=== PATIENT | female | born 1940 | race Caucasian/White ===

== ENCOUNTER 2020-07-16 14:51 | Emergency (ER) | payer OTHER, MEDICARE, SELFPAY ==
[2020-07-16 14:52] VITALS: BP 180/126; PULSE 129; RESP 16; TEMP 36.6; O2SAT 97; BMI 25.3
--- NOTE | 2020-07-16 15:12 | ED.VIS.GEN ---
History of Present Illness Chief Complaint: Fall Informant: Patient Narrative: 1-year-old female presenting with left thigh pain. She states she slipped and fell on steps. She denies hitting her head. She was able to get up and run up the stairs to help her mother get up. Apparently her mother was the cause of her fall. Patient states she has a hematoma on her left hip. But she is ambulatory and has minimal pain. Patient states she was concerned because she is on Xarelto. Past Medical History - Allergies and Home Meds Allergies/Adverse Reactions: Allergies lisinopril [From Zestril] Adverse Reaction (Verified 07/16/20 14:54) Other Primary Care Physician: Fifi Sánchez MD [Primary Care Provider] - Prior records reviewed: Yes Surgical History: noncontributory Lives: Spouse/ Significant Other Smoking Status: Never smoker Review of Systems General: Denies: Chills, Fever, Sweats Eyes: Denies: Visual changes - bilaterally, Diplopia ENT: Denies: Rhinorrhea, Sore throat Cardiovascular: Denies: Chest pain, Palpitations Respiratory: Denies: Dyspnea, Cough, Dyspnea on exertion Gastrointestinal: Denies: Abdominal pain, Nausea, Vomiting, Diarrhea, Melena, Hematochezia Genitourinary: Denies: Dysuria, Hematuria, Frequency Musculoskeletal: Reports: - - Left thigh hematoma Skin: Denies: Rash, Abscess Neurological: Denies: Headache, Weakness, Parasthesia Psych: Denies: Depression, Anxiety Physical Exam Vital Signs/Narrative: Vital Signs Temp Pulse Resp BP Pulse Ox 07/16/20 14:52 97.8 F 129 H 16 180/126 H 97 Inital Vital Signs reviewed: Yes General: Well nourished, No Acute Distress Head: Normocephalic Eyes: Perrl, EOMI ENT: Moist mucous membranes, No rhinorrhea Cardiovascular: Regular rate, Regular rhythm Respiratory: No distress, CTA bilaterally Extremities: - - Tenderness overlying left thigh hematoma. No deformity. Negative logroll. Patient is able to stand and walk briskly. Skin: Normal color, - - 10 cm hematoma on left lateral thigh Neurological: Alert, Oriented x3 Psychological: Normal affect, Normal Mood Diagnostic/Tx/Re-eval - Medical Decision Making 80-year-old female presenting with left leg hematoma. She was concerned because she is on Xarelto. She did not hit her head. She is alert and oriented x3. She has no neuro deficits. Patient states he just wanted to get her thigh looked at. I do not believe she needs an x-ray if she can briskly walk on this. She was counseled on how to care for hematoma. She was counseled to return if it starts to expand. Patient knowledge understanding. She discharged home in stable condition. Impression: 1. Mechanical fall 2. Left thigh hematoma ED Disposition - Plan for ED Patient: Disposition: Home or Assisted Living Instructions: ED Mechanical Fall, ED Hematoma Referrals: Fifi Sánchez MD [Primary Care Provider] -
[2020-07-16 15:50] VITALS: RESP 15
== END 2020-07-16 15:55 | disposition home or self-care (01) ==
PROVIDERS: Emergency Provider Student in an Organized Health Care Education/Training Program; PCP Internal Medicine
DX: S70.12XA Contusion of left thigh, initial encounter (principal); S70.02XA Contusion of left hip, initial encounter; W10.9XXA Fall (on) (from) unspecified stairs and steps, initial encounter; Y93.9 Activity, unspecified; Y92.9 Unspecified place or not applicable; Y99.9 Unspecified external cause status; Z79.01 Long term (current) use of anticoagulants; Z79.899 Other long term (current) drug therapy
CPT/HCPCS: 99282

== ENCOUNTER 2021-09-15 12:48 | Outpatient (CLI) | payer MEDICARE, OTHER, SELFPAY ==
--- NOTE | 2021-09-15 13:02 | CT_ITS ---
STUDY: CT SCAN LOWER EXTREMITY RIGHT REASON FOR EXAM: Female, 81 years old. VARUS DEFORMITY. Johnathan protocol. RADIATION DOSAGE (If Supplied By Facility): CTDIvol = ( 18.09 ) mGy, DLP = ( 1366.96 ) mGycm. Individualized dose optimization techniques were used for this CT.? TECHNIQUE: Multiple axial tomographic images of the right hip, right knee and right ankle joints were obtained without intravenous contrast administration. Coronal and sagittal reconstruction was obtained as well. COMPARISON: None. FINDINGS: Small acetabular spur along the superior lateral aspect of the acetabulum. No significant hip joint narrowing is seen. Imaging of the knee joint was obtained. There is a moderate degree of joint space narrowing involving the medial compartment of the knee joint. Subchondral cysts are seen. Mild degree of joint space narrowing of the patellofemoral joint. Minimal synovial thickening. Imaging of the ankle joint was obtained. No significant abnormality is seen. There is symmetry of the ankle mortise. CT/Extremity Lower without Contra IMPRESSION: Moderate degree of joint space narrowing involving the medial compartment of the knee joint and a mild degree of joint space narrowing involving the patellofemoral compartment. Tiny joint effusion. Electronically Signed: Sanjeev Gandhi MD at 15:23 EDT ,
== END 2021-09-15 23:59 | disposition home or self-care (01) ==
LOC: CT 12:51
PROVIDERS: PCP Internal Medicine; Referring Provider Specialist; Visit Provider Specialist
DX: M21.161 Varus deformity, not elsewhere classified, right knee (principal)
CPT/HCPCS: 73700

== ENCOUNTER 2021-09-22 19:23 | Emergency (ER) | payer MEDICARE, OTHER, SELFPAY ==
[2021-09-22 19:25] VITALS: BP 166/96; PULSE 52; RESP 14; TEMP 36.7; O2SAT 97; BMI 26.0
--- NOTE | 2021-09-22 21:22 | ED.VIS.GI ---
HPI HPI - GI History of Present Illness Chief Complaint: Constipation Informant: patient Abdominal Pain/Flank Pain Onset: Yesterday Context: Gradual Onset Timing: Continuous Quality: Aching Location: - (Lower abdomen) Current Severity: Moderate Maximum Severity: Moderate Worsened by: Nothing Relieved by: Nothing Nausea/Vomiting/Emesis GI Symptom: Negative for Nausea and Vomiting Diarrhea/Melena/Hematochezia GI Symptom: Positive for - (Constipated, feels like needs to have a bowel movement but cannot all day); Negative for Diarrhea, Melena and Hematochezia Associated Symptoms Associated Symptoms: Negative for Dysuria, Frequency and Hematuria Narrative Narrative: Patient's been taking tramadol off-and-on for her knee which needs a knee replacement and is scheduled for October. She is presenting with constipation yesterday and all day today and unable to have a bowel movement although she feels the need to. She takes Dulcolax every day but has not tried anything else for this today. She is having some lower abdominal pain, she feels full and like she needs to have a bowel movement. Denies any vomiting. [facility] Medical History (Updated 09/22/21 @ 22:[address] Dallin Bell MD) Afib Arthritis of knee High cholesterol HTN (hypertension) Home Medications allopurinol 100 mg PO DAILYCM 07/16/20 [History Last Taken Unknown] carvedilol 12.5 mg PO DAILY 07/16/20 [History Last Taken Unknown] hydrochlorothiazide 12.5 mg PO DAILY 07/16/20 [History Last Taken Unknown] losartan 100 mg PO DAILY 07/16/20 [History Last Taken Unknown] rivaroxaban 20 mg PO DAILY 07/16/20 [History Last Taken Unknown] atorvastatin 20 mg PO DAILY 09/22/21 [History Last Taken Unknown] multivitamin 1 cap PO DAILY 09/22/21 [History Last Taken Unknown] Allergy/AdvReac Type Severity Reaction Status Date / Time lisinopril [From Zestril] AdvReac Other Verified 09/22/21 19:25 Social History Smoking Status: Never smoker ROS ROS ED Constitutional Constitutional ED: Denies chills or fever(s) Eyes Eyes: Denies change in vision or diplopia ENT ENT ED: Denies rhinorrhea or sore throat Cardiovascular Cardiovascular: Denies chest pain or palpitations Respiratory/Chest Respiratory/Chest: Denies cough or dyspnea Gastrointestinal Gastrointestinal: Reports as per HPI, abdominal pain and constipation; Denies diarrhea, nausea or vomiting Genitourinary Genitourinary ED: Denies dysuria or hematuria Musculoskeletal Musculoskeletal: Denies back pain or neck pain Integumentary Denies abscess or rash Neurologic Neurologic: Denies headache(s), paresthesias or weakness Psychiatric Psychiatric: Denies anxiety or suicidal thoughts EXAM Physical Exam Const Vital Signs: 09/22/21 19:25 Temperature 98.1 F Temperature Source Temporal Pulse Rate 52 L Respiratory Rate 14 Blood Pressure 166/96 H Blood Pressure Mean 119 Pulse Ox 97 Oxygen Delivery Method Room Air Positive well nourished and well developed General Appearance ED: well developed and NAD HEENT Reports moist mucous membranes normocephalic and atraumatic Eyes PERRL and EOMs intact bilaterally Neck full ROM and supple Resp normal respiratory effort and clear to auscultation bilaterally Cardio regular rate, regular rhythm and no murmurs Rate: Negative for tachycardic GI non-distended GI Narrative: Mildly tender suprapubic area only Auscultation: normoactive bowel sounds Palpation: soft Rectal Exam: visual inspection normal and other Other Details: No palpable hard stool in rectal vault ; Negative for tenderness Back/Spine no CVA tenderness General Back: other FROM Extremity normal to inspection General Extremety ED: Negative for edema, pulses abnormal or tenderness General Extremity: Negative for edema or pulses abnormal Neuro oriented x3, CN's II-XII intact bilaterally and no sensory deficits noted Sensorium / Orientation: awake and alert Motor Exam: strength 5/5 throughout Skin no rashes or lesions noted and no wounds MDM MDM MDM Narrative Medical decision making narrative: Patient was given a fleets enema, and she had a large bowel movement and felt better. She states she still feels sore in her lower abdomen but is not as tender. She states for the last day or 2 she has been straining a lot to try to have a bowel movement without success and she feels like it could be pelvic muscle soreness. I offered placing an IV, doing a CT scan to ensure she does not have anything else causing her pain such as diverticulitis. She has had colonoscopy and sigmoidoscopy's in the past and states she was never told about any diverticulosis. She declines and states she would prefer to go home and see how things go for the next day or so, and states if she gets worse she will return which I think is fine. I advised MiraLAX daily especially if she still continues to take the tramadol, which I suspect was probably causing her constipation. Discharge Plan Triage Chief Complaint: Constipation ED Provider: Dallin Bell Dx/Rx/DC Orders Clinical Impression: Constipation, Abdominal pain, lower Instructions: ED Constipation (Adult) Prescriptions: No Action carvedilol 12.5 MG tablet 12.5 mg PO DAILY RF: 0 allopurinol 100 MG tablet 100 mg PO DAILYCM RF: 0 losartan 100 MG tablet 100 mg PO DAILY RF: 0 hydrochlorothiazide 12.5 MG tablet 12.5 mg PO DAILY RF: 0 rivaroxaban 20 MG tablet 20 mg PO DAILY RF: 0 atorvastatin 20 mg Tablet 20 mg PO DAILY RF: 0 multivitamin Capsule 1 cap PO DAILY RF: 0 Primary Care Provider: Fifi Sánchez Referrals: Fifi Sánchez MD [Primary Care Provider] - 3-5 Days if not improving (Or ER) Activity Restrictions/Additional Instructions: Consider using MiraLAX, 1 capful dissolved in at least 8 ounces of fluid daily, followed by plenty of fluids to keep stools soft, especially if continuing to use tramadol for pain. Disposition Disposition: Home, Self Care
[2021-09-22] MEDS: Fleet Enema 1 ML RC (21:58)
[2021-09-22 22:13] VITALS: BP 156/72; PULSE 62; RESP 15; O2SAT 99
== END 2021-09-22 22:14 | disposition home or self-care (01) ==
PROVIDERS: Emergency Provider Emergency Medicine; PCP Internal Medicine; Visit Provider Emergency Medicine
DX: K59.00 Constipation, unspecified (principal); R10.30 Lower abdominal pain, unspecified; I10 Essential (primary) hypertension; E78.00 Pure hypercholesterolemia, unspecified; Z79.01 Long term (current) use of anticoagulants; Z79.899 Other long term (current) drug therapy
CPT/HCPCS: 99282; A4216

== ENCOUNTER → 2021-12-15 | Outpatient (CLI) | payer MEDICARE, OTHER, SELFPAY ==
--- NOTE | 2021-12-15 10:44 | ECHOD_ITS ---
Reason For Study: Afib/Flutter Procedure This was a 2D Doppler, Color Flow transthoracic echocardiogram. The study was technically difficult. Exam performed in department. Left Ventricle Normal LV size. Left ventricular systolic function is normal. The estimated ejection fraction is 55 %. Diastolic function is indeterminate. No regional wall motion abnormalities noted. Right Ventricle Normal RV size. Normal systolic function. Atria The left atrium is moderately enlarged. The right atrium is mildly enlarged. Mitral Valve There is mild to moderate mitral annular calcification. Mild (1+) eccentric mitral valve insufficiency. Tricuspid Valve Normal tricuspid valve. Mild tricuspid valve insufficiency. Pulmonary artery systolic pressure is 33 mmHg. Aortic Valve Trisinus/trileaflet aortic valve. Mild (1+) aortic valve insufficiency. Pulmonic Valve Normal pulmonic valve. MMode/2D Measurements & Calculations LVIDd: 3.5 cm IVSd: 1.2 cm CO(Teich): 3.0 l/min LVIDs: 2.5 cm LVPWd: 1.1 cm RVDd: 2.4 cm FS: 28.0 % Ao root diam: 3.2 cm LAV(MOD-bp): 106.1 ml LA dimension: 4.5 cm LA A4 area: 31.5 cm2 LAV(MOD-bp) Indexed: 66.4 ml/m2 LAV(MOD-sp2): 89.6 ml LAV(MOD-sp4): 113.2 ml RA A4 area: 25.1 cm2 Doppler Measurements & Calculations MV E max beverly: 128.9 cm/sec Ao V2 max: 107.6 cm/sec AI max beverly: 458.1 cm/sec Ao max P.6 mmHg AI max P.0 mmHg AI dec slope: 288.4 cm/sec2 AI P1/2t: 465.2 msec LV V1 max: 88.6 cm/sec MR max beverly: 555.0 cm/sec PA V2 max: 92.2 cm/sec LV V1 max P.2 mmHg MR max P.2 mmHg LV V1 mean P.7 mmHg MR mean beverly: 449.9 cm/sec LV V1 mean: 59.8 cm/sec MR mean P.1 mmHg LV V1 VTI: 18.0 cm MR VTI: 176.5 cm PI end-d beverly: 163.0 cm/sec TR max beverly: 274.8 cm/sec TR max P.3 mmHg ECHO/Echo Complete Interpretation Summary Normal LV size. Left ventricular systolic function is normal. The estimated ejection fraction is 55 %. No regional wall motion abnormalities noted. Mild (1+) eccentric mitral valve insufficiency. Mild tricuspid valve insufficiency. Diastolic function is indeterminate. Ordering Physician: Alannah, [place] Referring Physician: Fifi Sánchez M.D. Performed By: Ranjan Aquino RCS
== END | disposition home or self-care (01) ==
LOC: CVS 10:44
PROVIDERS: PCP Internal Medicine; Visit Provider Internal Medicine Cardiovascular Disease
DX: I48.91 Unspecified atrial fibrillation (principal); R94.31 Abnormal electrocardiogram [ECG] [EKG]
CPT/HCPCS: 93306

== ENCOUNTER 2022-03-31 12:27 | Observation (INO) | payer MEDICARE, OTHER, SELFPAY ==
--- NOTE | 2022-03-15 22:33 | HP.PCM_ITS ---
History and Physical History and Physical [facility] Patient Name: Luisa Leo : 1940 From:? [facility] PA-C? DATE OF SURGERY:? 03/31/2022 SCHEDULED PROCEDURE:? right total knee arthroplasty HISTORY OF PRESENT ILLNESS: Preoperative history and physical exam was performed on March 15, 2022.? Patient has had ongoing pain in the right knee for many years.? Her pain is dull and aching.? She has increased pain with sitting, walking, and going up and down stairs.? She has pain that wakens her at night.? She has start up pain and stiffness with the knee.? Patient has tried conservative measures including rest, ice, elevation with minimal relief.? She has had previous corticosteroid injections with minimal relief.? She had recent gel one injection in July 2021 which only gave minimal relief.? She has pain with all daily activities.? She denies previous surgery on the right knee.? Patient has tried home exercises with minimal relief.? After failing conservative measures and discussing all treatment options with Dr. Abiel Delgadillo, the patient does wish to proceed with a right total knee arthroplasty.? She has attempted occasional ibuprofen with minimal relief.? She has medical history pertinent for atrial fibrillation in which she currently takes Rivaroxaban 20 mg daily.? She also has hypertension.? We have undergone preoperative clearance with the director of counterintelligence Dr. Jaffe in which we are able to stop his roll to 3 days before surgery.? We are also obtaining surgical clearance of the primary care physician Dr. Sánchez.? Patien t currently denies any chest pain, shortness of breath, fevers chills or recent infections. REVIEW OF SYSTEMS: Review Of Systems: Constitutional: Denies change in appetite, fever,or weight change. Cardiovasular: Denies chest pain, heart murmur and irregular heartbeat. Respiratory: Denies cough, pneumonia, shortness of breath, tuberculosis and wheezing. Gastrointestinal: Denies constipation, diarrhea, heartburn, nausea, rectal itching, bloody stools and vomiting. Genitourinary: Denies incontinence. Musculoskeletal: Reports pain and trouble walking, but denies leg swelling and weakness. Skin: Denies Raynaud's, history of shingles and tattoo. Neurological: Denies ambulatory dysfunction, dizziness, numbness/tingling and tremor. Psychiatric: Reports insomnia, but denies anxiety and stress. Hematologic/Lymphatic: Denies anemia, bleeding/bruising tendency and past transfusion. Reviewed and updated. PAST MEDICAL HISTORY: Advance Care Plan: Other Directive, LIVING WILL Effective Date: 04/11/2017 Other Directive, P.O.A. Effective Date: 04/11/2017 Past Medical History: Medical Problems: High Blood Pressure, A-Fib Covid-19 - VACCINE 06/2020?? Accidents: LT Leg Injury - (07/17/2020) FALL Surgical Hx: Bilat Thumb Anesthesia Complications: None Assistive Devices: Glasses, Cane Reviewed and updated. SOCIAL HISTORY: Social History: Marital: .Occupation: Homemaker.Work Status: Housewife.Hand Dominance: Right-handed. Personal Habits:? Cigarette Use: Never Smoked Cigarettes.Smokeless Tobacco: Never Used Smokeless Tobacco.E-Cigarette Use: Never used.Alcohol: Occasionally.Drug Use: Denies Use.Enjoy Exercising: Never Exercises. Reviewed and updated. VITALS: Ht: 60.5 Wt: 137lb Wt k.143 BMI: 26.3 BP: 136/90 Pulse: 96 Resp: 14 T: 96.7 T: 35.9C Pain Level: 9 O2SatR: 98 ALLERGIES: Zestril Oxycontin Daypro Naproxen Monistat? MEDICATIONS: Losartan Potassium 100 mg 1 by mouth every day, Hydrochlorothiazide 12.5 mg 1 by mouth every day, Allopurinol 100 mg 1 by mouth twice a day, Xarelto 20 mg 1 by mouth every day, Carvedilol 12.5 mg take 1 tablet by mouth twice daily., Atorvastatin Calcium 20 mg 1 by mouth every day, Multivitamin Gummies Adult? PRE-OP EXAM:? General appearance:NORMAL? ? ? Other: Eyes: Conjunctivae and lids: NORMAL? Pupils: ERR Ears, Nose, Mouth, and Throat: NORMAL? Other: Inspection of lips, teeth and gums: NORMAL? ?Other: Neck: Examination of neck: no masses noted. Respiratory: Assessment of respiratory effort: NORMAL? ?Other: ?Auscultation of lungs: clear to auscultation no wheezes, rhonchi or rales. Cardiovascular:? Auscultation of heart: irregular-irregular rate and rhythm, no murmurs, gallops or rubs. PHYSICAL EXAMINATION: Patient does walk with an antalgic gait.? Right knee is without erythema or signs of infection.? She does have mild effusion.? There is tenderness to palpation over the medial joint line.? Patient does have varus alignment which is correctable on exam.? Range of motion: 0 extension to 125 flexion.? Sensation is intact to light touch to bilateral lower extremities.? Stable to anterior/posterior drawer exam. IMAGING STUDIES: Previous x-rays of the right knee reveal varus alignment with medial joint space narrowing, subchondral sclerosis, osteophyte formation consistent with moderate to severe stage IV osteoarthritis. IMPRESSION: 1.? Severe right knee osteoarthritis 2.? Hypertension 3.? Chronic atrial fibrillation: Currently on Xarelto 20 mg PLAN: Dr. Abiel Delgadillo did discuss and review with the patient all treatment options including surgical versus nonsurgical options.? Patient does wish to proceed with the above-stated procedure.? Potential risks, benefits, and complications of the procedure were discussed in detail including but not limited to , infection, nerve and blood vessel damage, persistent pain, numbness, tingling, paresthesias, blood clot, pulmonary embolism, and requirement for possible further surgery.? The patient expressed full understanding and has no further questions for the doctor.? Patient does agree to proceed with the above-stated procedure and has signed the surgery consent form. We discussed the current risks associated with COVID 19.? This does include the risk of exposure while in the hospital.? Patient was reassured local hospitals have low infection rates and are taking all necessary precautions to avoid exposure to patients.? In addition, we discussed strategies that can be used to help limit exposure including those that limit the patient's time in the hospital.? Also using strategies to limit the patient's need for continued inpatient services after being discharged from the hospital.? Patient was notified that we will need to comply with any screening or testing the hospital wishes to perform or that surgery may be delayed for any positive results. This dictation was created using voice recognition software. Phonetic and/or grammatical errors may exist. ___? I have re-examined the patient.? There are no clinical changes since date of exam. ___? See progress notes for changes. ___? Dictated on admission Date: ? ? ?Time: Signature:
[2022-03-17 09:37] LABS: Absolute Lymphocyte Count 1.82 X10^3/uL (0.83-4.51); Basophil# 0.05 X10^3/uL; Basophil% 0.9 % (0-1); Eosinophil# 0.18 X10^3/uL; Eosinophils% 3.3 % (0-5); Hematocrit 40.3 % (37-47); Hemoglobin 13.2 g/dL (12.0-15.0); Lymphocyte # 1.82 X10^3/ul (0.83-4.51); Lymphocyte % 33.3 % (19-41); Mean Corp Hgb Conc 32.8 g/dL (32-36); Mean Corpuscular Hgb 32.3 pg (27.0-32.0); Mean Corpuscular Volume 98.5 fL (81-99); Mean Platelet Vol. 9.5 fl (6.2-12.0); Monocyte# 0.37 X10^3/uL; Monocyte% 6.8 % (0-10); NRBC Flagged by Analyzer 0 % (0-5); Neutrophil # 3.03 X10^3/uL (2.7-7.7); Neutrophil % 55.5 % (47-70); Platelet Count 209 K/mm3 (150-450); RBC Distribution Width CV 13.1 % (11.6-14.6); Red Blood Count 4.09 M/mm3 (4.2-5.4); White Blood Count 5.5 K/mm3 (4.4-11.0)
[2022-03-17 09:58] LABS: Albumin, Serum 3.7 g/dL (3.2-5.0); Anion Gap 7 (5-15); BUN 11 mg/dL (7-18); BUN/Creat Ratio 12.8 RATIO (10-20); Calcium,Total 9.5 mg/dL (8.5-10.1); Chloride 107 mmol/L (98-107); Creatinine, Serum 0.86 mg/dL (0.55-1.02); EST Glomerular Filtration Rate 67 mL/min (>60); Est Glom Filt Rate - Afr Amer 81 mL/min (>60); Glucose 124 mg/dL (74-106); Potassium 3.7 mmol/L (3.5-5.1); Sodium Level 143 mmol/L (136-145)
[2022-03-17 10:07] LABS: Hemoglobin A1c 6.1 % (3.8-5.6)
[2022-03-17 13:37] LABS: Magnesium 1.9 mg/dL (1.6-2.6)
[2022-03-31] VITALS (13 sets, daily range): BP systolic 115–153; BP diastolic 59–105; PULSE 70–120; RESP 14–20; TEMP 36.3–36.8; O2SAT 93–98; BMI 26.2
--- NOTE | 2022-03-31 07:07 | OP.PCM_ITS ---
Report of Operation Date of Procedure: 03/31/22 Pre-Operative Diagnosis: Right knee primary osteoarthritis Post-Operative Diagnosis: Right knee primary osteoarthritis Surgery/Procedure Performed:: Right minimally invasive robotic total knee replacement Description of Surgical Findings:: Stable knee with good patella tracking Surgeon: Abiel Delgadillo turning machine operator helper: Kathrine De La Cruz Type of Anesthesia: Spinal Anesthesiologist: Joaquin Dominguez Special Medications: 2 g Ancef, 1 g TXA at incision, 1 g TXA closure, 10 mg Decadron, joint cocktail (5 mg Duramorph, 30 mL of 0.5% Ropivicaine, 1000 units of epinephrine, 30 mg of Toradol) Specimen's removed: Bony cuts Estimated Blood Loss (mL): 75 Fluids Replaced: 1300 mL crystalloid Description of Procedure: Implants used: 1. [place] size 3 triathlon cruciate retaining distal femoral press-fit component 2. [place] size 3 press-fit tritanium tibial baseplate 3. [place] X3 9 mm CS polyethylene 4. [place] X3 32 mm asymmetric patella Brief history operative indications: 81-year-old f with history of right knee osteoarthritis with radiographic findings with loss of joint space, osteophyte formation and subchondral sclerosis. Failed conservative measures as mentioned in the H&P. Discussion of total knee arthroplasty as well as risk and benefits were discussed the patient including but not limited to blood loss, DVTs, PEs, neurovascular damage, ge neral risk of anesthesia including loss of life, and stiffness or instability were discussed with patient. Patient demonstrated understanding and was able to sign informed consent. Procedure: On the date of procedure patient's right lower extremity was marked in the preoperative area. The patient was then taken back to the operating room where the patient was placed on the table in the supine position. All bony prominences were identified a well-padded. Anesthesia assumed control of the C-spine and airway and remained controlled throughout the remainder of the procedure. A tourniquet was placed on the right upper thigh and the leg was prepped in a sterile fashion. The surgeon then scrubbed at this time .Upon reentering the room right lower extremity was draped in a standard orthopedic fashion. A timeout was then called and everyone agreed upon the side, the site, the procedure to be performed, patient's identity and antibiotics given. Esmarch bandage was used to exsanguinate the extremity and the tourniquet was placed up to 250 mmHg with the knee in flexion. A midline skin incision was made and sharp dissection was taken down through skin subcutaneous tissue and fat. The standard medial parapatellar incision was made and the patella was subluxed laterally. An Appropriate deep MCL release was done and the fat pad was resected. Our attention was then directed to the patella. The patella was everted and a flat resection was made. The knee was then flexed up in 2 femoral pins were placed inside the incision and 2 tibial pins were placed outside the incision in the medial tibia bicortically. Once this was completed the 2 checkpoints in the femur and tibia were placed. Knee was then flexed up and the bony landmarks were registered. Once this was completed knee was taken through range of motion and manually stressed allowing us to a plan for an appropriate tibial cut. The robotic arm was brought into the field sterilely and checkpoint and saw were registered. Based on the patient's deformity the tibial cut was made in 3 degrees of varus. At this time the tensioner was then placed in the joint and ligament tension was checked at 90 degrees and full extension. Based on the patient's ligamentous tension appropriate adjustments were made to the operative plan and ligament releases were done. Once we were happy with our operative plan with balanced flexion and extension gaps our attention was directed to the femur. The robot was brought into the field sterilely and registered. Posterior condylar cuts, anterior chamfer cuts and anterior cuts were appropriately made for a size 3 femur. When these were completed the saws were switched out in the distal femoral and posterior chamfer cuts were made. Protecting the soft tissue throughout this time. A size 3 tibial base plate was selected. the knee was flexed to 90 degrees and the soft tissues and posterior osteophytes were removed from the joint. 40 cc of the periarticular injection was injected into the posterior medial corner of the joint. The appropriate trials were then placed on the femur and tibia. A trial polyethylene was trialed to ensure proper balancing and stability of the knee. The appropriate tibial internal rotation was then marked with a bovie. Our attention was then directed to the patella. The lug holes were drilled and the patella trial was placed. Patellar tracking was checked and deemed appropriate. Once we were happy lug holes were drilled for the femur and trial components were removed. the tibia was subluxed and pinned into place and the keel was punched and drilled appropriately. Final components were verified and opened, and cement was mixed in a vacuum. Snehta Simplex cement was used. The wound was copiously irrigated with normal saline. When the cement was ready the components were impacted into place starting with the tibia, femur and finally cementing the patella. The trial poly component was placed and the knee was placed in full extension. All excess cement was removed in the process. Once the cement had cured the tracking, alignment and balance were verified and a size 9 mm CS polyethylene component was placed. Once the final components were placed a 3-minute dilute Betadine lavage was performed followed by an Irrisept lavage was performed and the wound was copiously irrigated with normal saline solution and the periarticular injection was given. The wound was closed in a layer glaser fashion using #1 vicryl interrupted sutures for the arthrotomy, 2-0 interrupted Vicryl suture for the subcuticular layer and ashish for final skin closure. A sterile compressive dressing was then placed. The patient was then awakened from anesthesia, transferred to the [facility] and transferred to the PACU for recovery. Post op plan DVT ppx: Patient will resume her regular atrial fibrillation Xarelto dose of 20 mg daily tomorrow for DVT prophylaxis, thigh high compression stockings Follow up: in office in 2 weeks for wound check PT: to start POD #0 at hospital, outpatient PT should be arranged. Due to the complexity of this case robotic arm was used to assist in the surgery to improve accuracy and clinical outcomes. Complications No intraoperative complications Admit VTE Documentation VTE Present on Admission: No VTE Mechan Device Prophylaxis: SCD's and Thigh High [place]A Hose VTE Pharm Prophylaxis ordered?: Yes
[2022-03-31] MEDS: Lactated Ringers 1,000 ML 999 ML IV ×3 (08:09→11:00)
[2022-03-31] MEDS: Magnesium 2 GM for ERAS IV (08:09)
[2022-03-31] MEDS: Gabapentin 600 MG Tablet PO (08:12)
[2022-03-31] MEDS: Acetaminophen 500 MG Tablet 1000 MG PO ×3 (08:12→21:55)
[2022-03-31 08:50] LABS: Bedside Glucose 143 mg/dL (74-106)
[2022-03-31] MEDS: Cefazolin 2 GM in 0.9% Normal Saline 100 ML IV (09:57)
--- NOTE | 2022-03-31 10:00 | KNEE_PTH ---
PATIENT: NAVEED WILSON LOC: MS3 U#:[id number] AGE/SX: 81/F ROOM: CO321 RE03/31/[address]: Dr. Abiel Delgadillo MD : 1940 BED: 1 DIS: 04/01/2022 SPEC #: [id number] RECD: 03/31/22 13:13 STATUS: BUBBA WATTSLes #: [id number] CHRISTINA: 03/31/22 10:[address]: Abiel Delgadillo DEPT: SURGICAL PATHOLOGY RECD BY: Kwame Thakkar ENTERED: 03/31/22 13:22 SP TYPE: TOTAL KNEE OTHR DR: MD Dr. Brady Campos MD Tissues: Knee, NOS Procedures: Decalcification bone/plaque Surgery Specimen Level IV HEADER OPERATION: ERAS, total knee replacement robotic arm assist PRE-OP DIAGNOSIS: Severe right knee osteoarthritis TISSUE SUBMITTED: Bone and soft tissue right knee MICROSCOPIC DIAGNOSIS Bone and tissue of right knee, total knee resection: Severe degenerative joint disease. Mild synovial hyperplasia. AM:lisa 04/06/2022 MICROSCOPIC DESCRIPTION Slides are reviewed. GROSS DESCRIPTION Received is one container designated bone and soft tissue right knee. The specimen consists of multiple fragments of solano-yellow bone measuring in aggregate 14 x 10 x 2 cm. Also in the specimen container are multiple fragments of yellow-white soft tissue measuring in aggregate 5 x 2.5 x 1 cm. A number of bony fragments contain articular surfaces consistent with tibial plateau and femoral condyle and displaying prominent osteophyte formation, eburnation, and bone erosion. [employer] sections are submitted in two cassettes as follows: 1 - soft tissue, 2 - bone after decalcification. / AM:lisa 03/31/2022 :5 [facility]: [id number], [id number]
[2022-03-31] MEDS: dexAMETHasone 10 MG/ML Vial IV (10:18)
--- NOTE | 2022-03-31 12:00 | RAD_ITS ---
STUDY: X-RAY - RIGHT KNEE REASON FOR EXAM: Female, 81 years old. Post op -- AP and Lateral xray of operative knee in PACU TECHNIQUE: 2 view(s) of the knee. COMPARISON: None. FINDINGS: Normal visualized distal femur. Normal visualized proximal tibia and fibula. Normal proximal tibiofibular articulation. The patient is status post total knee replacement. There is good alignment. Postoperative soft tissue changes. RAD/Knee 1 or 2 Views IMPRESSION: Status post total knee replacement. There is good alignment. Postoperative soft tissue changes. Electronically Signed: Sanjeev Gandhi MD at 12:21 EDT ,
[2022-03-31] MEDS: Lactated Ringers 1,000 ML 125 ML IV (12:20)
--- NOTE | 2022-03-31 13:10 | NURSING ---
talked with Megha RUBBER BLOCK LAYER, aware Dr. Cowart does not feel needs to be on tele monitoring at this time with elevated HR and Afib.
--- NOTE | 2022-03-31 14:43 | PCM.PN.HOSP ---
Subjective Subjective 1-year-old female presents for a right total knee replacement secondary to osteoarthritis. She is doing well, denies any significant pain does state that she has a sore throat after anesthesia. No recent medication changes Objective Data Objective Data Vital Signs: Vital Signs Temp Pulse Resp BP Pulse Ox O2 Del Method O2 Flow Rate 97.3 F L 108 H 15 145/84 H 98 Nasal Cannula 4 03/31/22 13:50 03/31/22 13:50 03/31/22 13:50 03/31/22 13:50 03/31/22 13:50 03/31/22 13:50 03/31/22 13:50 Oxygen Flow Rate (L/min) 4 Oxygen Delivery Method Nasal Cannula Weight: 136 lb 10.986 oz Body Mass Index (BMI) 26.2 Intake & Output: Intake and Output for Last 24 Hours 03/30/22 03/31/22 04/01/22 03:59 03:59 03:59 Intake Total 3269 / 3269 Balance 3269 / 3269 Lab / Micro Data Result Diagrams: 03/17/22 08:58 03/17/22 08:58 Labs: Laboratory Results - last 24 hr 03/31/22 07:57: POC Glucose 143 H Micro: Microbiology 03/17/22 09:02 Swab (Method) Nasal Screen MRSA/MSSA - Final Radiography Diagnostic Testing: Radiology Impression Knee X-Ray 03/31/22 12:00 IMPRESSION: Status post total knee replacement. There is good alignment. Postoperative soft tissue changes. Electronically Signed: Sanjeev Gandhi MD at 12:21 EDT , Physical Exam Narrative General: Alert, Oriented x3, Cooperative, No apparent distress HEENT: Atraumatic, PERRLA, EOMI, Normocephalic Oral: Moist Mucosa Neck: Supple, No JVD Lungs: Diminished, Normal air movement, No rhonchi, No wheeze, No rales Cardiovascular: Tachycardic with an irregular rhythm, Normal S1, Normal S2, No murmurs Abdomen: Soft, Non Tender, Non-Distended, No Hepato-splenomegaly Extremities: No edema, Capillary Refill Less than 3 Seconds Skin: Surgical dressing intact Musculoskeletal: No Tenderness to Palpation of Joints or Extremities Neurological: Cranial nerves II-XII grossly intact, Motor Exam 5/5 strength throughout, Sensory exam intact to light touch and pain Psych/Mental Status: Normal Affect, Appropriate Assessment & Plan Assessment/Plan (1) Osteoarthritis of right knee: (2) Status post total right knee replacement: PLAN: Plan 1. Status post right total knee replacement on 03/31/2022 for osteoarthritis of the right knee ? Pain management per primary ? Anticoagulation per primary 2. Persistent A. fib/HTN/HLD ? She did take her Coreg this morning but her heart rate is little bit elevated likely secondary to surgery and pain we will continue to monitor ? Can resume all of her home medications including Coreg, hydrochlorothiazide and losartan we will monitor renal function in the morning ? Okay to resume Xarelto per primary ? Continue with Lipitor DVT: Xarelto Charges/Coding Visit Charges OBSV E&M: 53451 Subsequent observation care L2
[2022-03-31] MEDS: Ensure Surgery 237 ML LIQUID PO (16:46)
[2022-03-31] MEDS: Cefazolin 1 GM/50 ML BAG IV (17:00)
[2022-03-31] MEDS: HYDROcodone Bitartrate/Apap 5/325 Tablet PO (19:10)
[2022-03-31] MEDS: Carvedilol 12.5 MG Tablet PO (21:54)
[2022-03-31] MEDS: Atorvastatin Calcium 20 MG Tablet PO (21:54)
[2022-03-31] MEDS: Senna/Docusate Sodium 1 Tablet 2 TABLET PO (21:55)
[2022-04-01 01:55] VITALS: BP 120/68; PULSE 101; RESP 17; TEMP 36.6; O2SAT 96
[2022-04-01] MEDS: Cefazolin 1 GM/50 ML BAG IV (01:57)
[2022-04-01 05:57] LABS: Hematocrit 29.4 % (37-47); Hemoglobin 10.1 g/dL (12.0-15.0); Mean Corp Hgb Conc 34.4 g/dL (32-36); Mean Corpuscular Hgb 33.7 pg (27.0-32.0); Mean Platelet Vol. 9.4 fl (6.2-12.0); Platelet Count 161 K/mm3 (150-450); RBC Distribution Width CV 13.1 % (11.6-14.6); RBC Distribution Width SD 46.8 fl (35.1-43.9); White Blood Count 9.1 K/mm3 (4.4-11.0)
[2022-04-01] MEDS: Acetaminophen 500 MG Tablet 1000 MG PO ×2 (06:11→14:21)
[2022-04-01 06:49] LABS: Anion Gap 6 (5-15); BUN 17 mg/dL (7-18); BUN/Creat Ratio 21.7 RATIO (10-20); Calcium,Total 8.7 mg/dL (8.5-10.1); Chloride 104 mmol/L (98-107); Creatinine, Serum 0.78 mg/dL (0.55-1.02); EST Glomerular Filtration Rate 75 mL/min (>60); Est Glom Filt Rate - Afr Amer 90 mL/min (>60); Estimated Creatinine Clearance 31.15 ml/min; Glucose 135 mg/dL (74-106); Potassium 3.5 mmol/L (3.5-5.1); Sodium Level 139 mmol/L (136-145)
[2022-04-01 08:00] VITALS: BP 103/45; PULSE 89; RESP 16; TEMP 36.7; TEMP 37.1; O2SAT 93; O2SAT 94
[2022-04-01] MEDS: Allopurinol 100 MG Tablet PO (08:17)
[2022-04-01] MEDS: Famotidine 20 MG Tablet PO (08:17)
[2022-04-01] MEDS: Carvedilol 12.5 MG Tablet PO (08:17)
[2022-04-01] MEDS: Senna/Docusate Sodium 1 Tablet 2 TABLET PO (08:19)
[2022-04-01] MEDS: Ensure Surgery 237 ML LIQUID PO ×2 (08:22→11:24)
[2022-04-01] MEDS: Multivitamins,Therapeutic Tablet 1 TABLET PO (08:23)
--- NOTE | 2022-04-01 09:34 | PCM.PN.ORT ---
Subjective Subjective Patient is s/p right sided total knee arthroplasty with Dr. eDlgadillo. Patient resting comfortably in bed. Rates pain 1/ 10 at rest. With movement 7/10. States taking Tylenol, [place] and ice help to relieve pain. Patient has been up with therapy. Walking with the assit of a walker. Afebrile, no chest pain, shortness of breath, negative calf pain/ erythema, and no other signs of DVT. Dressing changed times once overnight for drainage. Overall patient appears asymptomatic this morning from drop in H&H however is on continuous pulse ox at this time and is ranging from 90-110. Oxygen saturations stable. She is having no chest pain no shortness of breath no lightheaded or dizziness. Objective Data Objective Data Vital Signs: Vital Signs Temp Pulse Resp BP Pulse Ox O2 Del Method O2 Flow Rate 98.1 F 89 16 103/45 L 94 Room Air 2 04/01/22 08:00 04/01/22 08:00 04/01/22 08:00 04/01/22 08:00 04/01/22 08:00 04/01/22 08:00 04/01/22 01:55 Oxygen Flow Rate (L/min) 2 Oxygen Delivery Method Room Air Weight: 62 kg Body Mass Index (BMI) 26.2 Intake & Output: Intake and Output for Last 24 Hours 03/30/22 03/31/22 04/01/22 23:59 23:59 23:59 Intake Total 4384 / 4834 750 / 750 Balance 4384 / 4834 750 / 750 Lab / Micro Data Result Diagrams: 04/01/22 05:30 04/01/22 05:30 Labs: Laboratory Results - last 24 hr 04/01/22 05:30: WBC 9.1, RBC 3.00 L, Hgb 10.1 L, Hct 29.4 L, MCV 98.0, MCH 33.7 H, MCHC 34.4, RDW Std Deviation 46.8 H, RDW Coeff of Sridhar 13.1, Plt Count 161, MPV 9.4 04/01/22 05:30: Sodium 139, Potassium 3.5, Chloride 104, Carbon Dioxide 29.0, Anion Gap 6, BUN 17, Creatinine 0.78, Estim Creat Clear Calc 31.15, Est GFR (MDRD) Af Amer 90, Est GFR (MDRD) Non-Af 75, BUN/Creatinine Ratio 21.7 H, Glucose 135 H, Calcium 8.7 Micro: Microbiology 03/17/22 09:02 Swab (Method) Nasal Screen MRSA/MSSA - Final Radiography Diagnostic Testing: Radiology Impression Knee X-Ray 03/31/22 12:00 IMPRESSION: Status post total knee replacement. There is good alignment. Postoperative soft tissue changes. Electronically Signed: Sanjeev Gandhi MD at 12:21 EDT , Physical Exam Narrative Patient resting comfortably in bed No signs of acute distress Satting well on room air Limb is warm to touch, Sensation intact throughout entire lower extremity, including saphenous, sural, superficial and deep peroneal, and tibial distribution. DP/PT pulses bounding. Dorsi and plantar flexion strength 5/5 Dressing small area of dried blood in the midportion of incision. Otherwise clear dry intact Calf nontender to palpation, no erythema, no edema. Negative Homans Assessment & Plan Assessment/Plan (1) Status post total right knee replacement: PLAN: 1. Will continue PT today. Weightbearing as tolerated 2. plan for discharge this afternoon following PT. will continue to monitor patient's pulse ox. Oxygen saturation is stable. Pulse upon rounding ranging from 90-1 10. As long as patient remains less than 100, nontachycardic, okay for discharge home today. Spoke with nursing staff they will let us know. 3. Patient will follow up for post op appointment as previously scheduled in 2 weeks 4. Patient has outpatient PT appointment as previously scheduled 5. WBC 9.1 no acute reactive leukocytosis 6. H/H .4: post operavtive anemia secondary to acute blood loss intraoperatively. Patient is asymptomatic at this time. On continuous pulse ox that she is trending from 90s to 110. Overall I believe she is still asymptomatic. Encourage fluids today. No intraoperative complications. will continue to monitor. no acute interventions. 7. DVT prophylaxis : Resume Xarelto tonight as previously prescribed. 8. Pain control: patient instructed to take tylenol 500mg 2 tablets TID. and [place] 1-2 tablets every 4-6 hours only as needed for pain control. 9. ok to remove post op dressing. post op day 5 (2) Osteoarthritis of right knee:
--- NOTE | 2022-04-01 10:14 | PN.HOSP_ITS ---
Subjective Subjective Follow-up on postop medical management: Patient was seen and examined. She denied any pain at the time of being seen. No acute events overnight. Blood pressures are much controlled Objective Data Objective Data Vital Signs: Vital Signs Temp Pulse Resp BP Pulse Ox O2 Del Method O2 Flow Rate 98.1 F 89 16 103/45 L 94 Room Air 2 04/01/22 08:00 04/01/22 08:00 04/01/22 08:00 04/01/22 08:00 04/01/22 08:00 04/01/22 08:00 04/01/22 01:55 Oxygen Flow Rate (L/min) 2 Oxygen Delivery Method Room Air Weight: 62 kg Body Mass Index (BMI) 26.2 Intake & Output: Intake and Output for Last 24 Hours 03/30/22 03/31/22 04/01/22 23:59 23:59 23:59 Intake Total 4384 / 4834 750 / 750 Balance 4384 / 4834 750 / 750 Lab / Micro Data Result Diagrams: 04/01/22 05:30 04/01/22 05:30 Labs: Laboratory Results - last 24 hr 04/01/22 05:30: WBC 9.1, RBC 3.00 L, Hgb 10.1 L, Hct 29.4 L, MCV 98.0, MCH 33.7 H, MCHC 34.4, RDW Std Deviation 46.8 H, RDW Coeff of Sridhar 13.1, Plt Count 161, M PV 9.4 04/01/22 05:30: Sodium 139, Potassium 3.5, Chloride 104, Carbon Dioxide 29.0, Anion Gap 6, BUN 17, Creatinine 0.78, Estim Creat Clear Calc 31.15, Est GFR (MDRD) Af Amer 90, Est GFR (MDRD) Non-Af 75, BUN/Creatinine Ratio 21.7 H, Glucose 135 H, Calcium 8.7 Micro: Microbiology 03/17/22 09:02 Swab (Method) Nasal Screen MRSA/MSSA - Final Radiography Diagnostic Testing: Radiology Impression Knee X-Ray 03/31/22 12:00 IMPRESSION: Status post total knee replacement. There is good alignment. Postoperative soft tissue changes. Electronically Signed: Sanjeev Gandhi MD at 12:21 EDT , Physical Exam Narrative Physical exam: General: Alert, Oriented x3, Cooperative, no apparent distress HEENT: Atraumatic Oral: Moist Mucosa Neck: Supple Lungs: Clear to auscultation Cardiovascular: HS I+II, regular, no murmurs Abdomen: Bowel Sounds Present, Soft, Non Tender Extremities: No edema Skin: No rashes, No breakdown Neurological: Grossly intact Psych/Mental Status: Appropriate Assessment & Plan Assessment/Plan (1) Status post total right knee replacement: PLAN: Plan 1. POD #1 status post right minimally invasive robotic total knee replacement Patient's pain is fairly controlled, PT and OT consulted to evaluate and treat Continue according to orthopedics recommendation 2. Hypertension, controlled, continue on home blood pressure medications with holding parameters 3. Chronic atrial fibrillation, continue Coreg and Xarelto 4. Hyperlipidemia, continue statin 5. DVT prophylaxis?on Xarelto Charges/Coding Visit Charges Inpatient E&M: 07165 Subs Hosp L2
[2022-04-01 10:41] VITALS: O2SAT 94
--- NOTE | 2022-04-01 10:48 | DCINST_ITS ---
Discharge Instructions Diet Discharge Diet: No restrictions Activity Discharge Activity: Return to Normal Activity Weight Bearing Status: Weight bearing as tolerated Dressing / Incision Call your doctor if your incision/area has: Continuous Slow Oozing, Sudden Increased Bleeding, Increased Pain/ Swelling, Increased Redness, Foul Smelling Discharge and Swelling at the incision site Call your doctor if you observe: Fever of 101 or Higher, Change in Color, Chest pain and Calf discomfort Remove Dressing in: 5 days Cleanse incision/area with: Soap & Water and Keep Dressing Clean & Dry Follow Up Care Test Results: Test results from this visit will be discussed in further detail at your follow- up appointment, if applicable. Discharge Plan Admission Admit Date/Time: 03/31/22 12:27 Attending Provider: Abiel Delgadillo Primary Care Provider: Fifi Sánchez Consulting Providers: Lucille Alvarado Discharge Orders/Prescriptions Prescriptions: New acetaminophen 500 mg Tablet 1,000 mg PO Q8 Qty: 180 0RF hydrocodone-acetaminophen 5-325 mg Tablet 1 - 2 tab PO .q4-6hrs prn PRN (Reason: Pain Score 4-5) 7 Days Qty: 60 0RF Continued allopurinol 100 MG tablet 100 mg PO DAILYCM losartan 100 MG tablet 100 mg PO DAILY hydrochlorothiazide 12.5 MG tablet 12.5 mg PO DAILY rivaroxaban 20 MG tablet 20 mg PO DAILY Label Comments: Take 1 tablet by mouth daily with dinner. for atrial fibrillation / anitcoagulation carvedilol 12.5 mg tablet 12.5 mg PO BID atorvastatin 20 mg Tablet 20 mg PO DAILY multivitamin Capsule 1 cap PO DAILY Discontinued acetaminophen 500 mg tablet 500 mg PO Q8H PRN (Reason: Pain) Referrals / Follow Up: Fifi Sácnhez MD [Primary Care Provider] - Disposition Disposition (needs filled in before D/C Order can be placed): Home, Self Care
[2022-04-01 11:25] VITALS: BP 110/52; PULSE 85
[2022-04-01 13:01] VITALS: O2SAT 98
--- NOTE | 2022-04-01 13:18 | CASEMGMT ---
GRICEL DIXON Assessment: Face to Face with pt for initial transition planning/care coordination assessment. GRICEL DIXON introduced self and role at [facility], pt voices understanding and consents to assessment. Pt is A/O x4 and answers all questions appropriately at this time. Pt sitting up in chair, dressed and ready for dc. Pt just worked with therapy. Care providers, pharmacy, and demographics verified/updated. Admitting Dx: R TKR PCP:Princess Specialists:allyson Delgadillo; Alannah cardio Preferred Pharmacy: [facility] Insurance: [facility], [employer] Supplement Prescription Benefit: yes LW/HPOA: Pt has DPOA on file at [facility], her DPOA is her Darryl Leo. LNOK: Darryl Leo, ; Suni Nichols, dtr Living Arrangements: Pt lives with in a single story house with 1 step to enter with a grab bar. Pt reports she was I in ADL's prior to surgery. Pt denies concerns at home. Transportation: Pt drives self and denies concerns with transportation. Pt dtr from [place] is coming to stay with her for two weeks and will transport pt to medical appts. DME/HHC/SNF: Pt has a standard walker but not FWW. Provided pt with script for FWW. Pt prefers to roller picker at [facility] which is where her scripts are instead of awaiting delivery of walker. Pt also has a cane and high rise toilet. Pt denies hx of HHC or SNF stays. Pt states no concerns with going home at time of dc. Pt has outpt therapy set up on Tuesday at [facility]. Pt states no further concerns/needs. CM to follow. Advised pt to ask CM if any further question/concerns/needs arise, voices understanding. Pt Goal: Home with outpt therapy set up Plan: Home with outpt therapy set up
--- NOTE | 2022-04-01 13:29 | CASEMGMT ---
GRICEL CM in to discuss MOBLEY form with patient. RN CM explained MOBLEY form, patient voiced understanding. Pt signed form and filed in chart. Pt provided with a copy of signed MOBLEY form. Patient had no further questions or concerns at this time.
[2022-04-01 14:00] VITALS: BP 120/53; PULSE 94; PULSE 95; RESP 16; TEMP 36.9; O2SAT 95
== END 2022-04-01 15:36 | disposition home or self-care (01) ==
LOC: SDC 12:28 → MS3 12:28
PROVIDERS: Anesthesiology; Admitting Provider Specialist; PCP Internal Medicine; Referring Provider Specialist; Visit Provider Specialist
PROC: 0SRC0JZ Replacement of Right Knee Joint with Synthetic Substitute, Open Approach (ICD-10-PCS; CPT 27447; principal; 2022-03-31 09:30)
DX: M17.11 Unilateral primary osteoarthritis, right knee (principal); I48.11 Longstanding persistent atrial fibrillation; I10 Essential (primary) hypertension; Z79.01 Long term (current) use of anticoagulants; Z79.899 Other long term (current) drug therapy; M10.9 Gout, unspecified
CPT/HCPCS: 27447; S2900; 01402; 64447; 36415; 73560; 80048; 82040; 82962; 83036; 83735; 85025; 85027; 87081; 88305; 88311; 96365; 96366; 97110; 97116; 97162; 97166; 97530; 97535; 99218; 99251; C1776; J7120; G0378; G0463

== ENCOUNTER 2023-08-20 16:28 | Emergency (ER) | payer MEDICARE, OTHER, SELFPAY ==
[2023-08-20] VITALS (24 sets, daily range): BP systolic 161–196; BP diastolic 93–153; PULSE 89–153; RESP 12–33; TEMP 36.2–37.1; O2SAT 94–98; BMI 27.3
--- NOTE | 2023-08-20 16:51 | EX.ED.DYSGE1 ---
HPI History of Present Illness Chief Complaint: Dizziness Detail of Chief Complaint: Patient presents for chief complaint of dizziness per triage. She informed Informant: patient and spouse/S.O. Onset/Context/Timing Onset: Today Context: Sudden Onset Timing: Continuous Quality: Decreased hearing left ear compared to right Location: Left ear Current Severity: Mild Worsened by: Nothing Relieved by: Nothing Associated Symptoms Associated Symptoms: No other symptoms Narrative Narrative: Patient is a 83-year-old woman with history of chronic atrial fibrillation on Xarelto. She also has history of hypertension and hypercholesterolemia. She presents because of muffled hearing left ear. She was watching TV with her . She states that things were muffled on the left side. She denies headache. She denies double vision, blurred vision loss of vision. Nuys trouble speech or swallowing. She denies chest pain, shortness of breath or difficulty breathing. She was unaware that her heart rate was 150+. She denies orthostatic symptoms. She denies problems with coordination or balance. She is presently on Xarelto and carvedilol. She is on hydrochlorothiazide and losartan for her hypertension. Prior similar symptoms: No Recent Illness/Hospitalization: No PFSH PFS Medical History Abnormal electrocardiogram Arthritis Arthritis of knee Cardiology follow-up encounter Essential hypertension Gout History of atrial fibrillation History of echocardiogram History of stress test Hyperlipidemia Hypertension Longstanding persistent atrial fibrillation Mitral insufficiency Non-smoker Post-menopausal Stenosis of right carotid artery Wears glasses Wears partial dentures Home Medications allopurinol 100 mg tablet 100 mg PO DAILYCM 07/16/20 [History Last Taken 03/30/22] hydrochlorothiazide 12.5 mg tablet 12.5 mg PO DAILY 07/16/20 [History Last Taken 08/20/23] losartan 100 mg tablet 100 mg PO DAILY 07/16/20 [History Last Taken 08/20/23] atorvastatin 20 mg tablet 20 mg PO DAILY 09/22/21 [History Last Taken 08/20/23] multivitamin 1 cap PO DAILY 09/22/21 [History Last Taken 08/20/23] carvedilol 12.5 mg tablet 12.5 mg PO BID 11/10/21 [History Last Taken 08/20/23] acetaminophen 500 mg tablet 1,000 mg (2 x 500 mg) PO Q8 #180 tabs 04/01/22 [Rx Last Taken Unknown] rivaroxaban 20 mg tablet (Xarelto) 20 mg PO DAILY 08/02/23 [History Last Taken 08/20/23] prednisone 20 mg tablet 60 mg (3 x 20 mg) PO DAILY #12 TABLETS 08/20/23 [Rx Last Taken Unknown] Allergy/AdvReac Type Severity Reaction Status Date / Time lisinopril [From Zestril] AdvReac Other Verified 08/02/23 14:18 NSAIDS (Non-Steroidal AdvReac Nausea/Vom/ Verified 08/02/23 14:18 Anti-Inflamma Diarrhea oxycodone [From OxyContin] AdvReac Rash Verified 08/02/23 14:18 Family History Mother Colon cancer Brother Diabetes Brother Hypertension Brother Hypertension Sister CAD (coronary artery disease) Myocardial infarction Hypertension IBS (irritable bowel syndrome) Surgical History History of bilateral cataract extraction History of thumb surgery Status post total right knee replacement Social History (Updated 08/20/23 @ 16:[address] Huang Bae MD) household members: spouse Smoking Status: Never smoker ROS ROS ED Constitutional Constitutional ED: Denies chills, fever(s), subjective, sweats or weight loss Eyes Eyes: Denies blurry vision, change in vision or diplopia ENT ENT ED: Reports other Details: Muffled/decreased hearing left side ; Denies ear pain, rhinorrhea or sore throat Cardiovascular Cardiovascular: Denies chest pain, palpitations or racing heartbeat Respiratory/Chest Respiratory/Chest: Denies cough, dyspnea or dyspnea on exertion Genitourinary Genitourinary ED: Denies dysuria, hematuria or urinary frequency Musculoskeletal Musculoskeletal: Denies arthralgias, back pain, myalgias or neck pain Neurologic Neurologic: Denies headache(s), paresthesias or weakness Psychiatric Psychiatric: Denies anxiety or depression Endocrine Endocrinology: Denies cold intolerance or heat intolerance Hematologic/Lymphatic Hematologic/Lymphatic: Reports systems reviewed and no addt'l complaints, except as documented EXAM Physical Exam Const Vital Signs: 08/20/23 16:29 08/20/23 16:47 08/20/23 17:31 Temperature 97.2 F L 98.7 F Temperature Source Temporal Temporal Pulse Rate 153 H 128 H 114 H Respiratory Rate 18 20 H 16 Blood Pressure 196/114 H 177/101 H Blood Pressure Mean 141 126 Pulse Ox 96 98 94 Oxygen Delivery Method Room Air Room Air 08/20/23 17:21 08/20/23 16:46 08/20/23 17:00 Temperature Temperature Source Pulse Rate 105 H 135 H 128 H Respiratory Rate 18 19 H 22 H Blood Pressure 193/127 H 196/114 H 191/153 H Blood Pressure Mean 149 137 162 Pulse Ox 97 98 94 Oxygen Delivery Method Room Air 08/20/23 17:11 08/20/23 17:15 08/20/23 17:20 Temperature Temperature Source Pulse Rate 104 H 114 H 101 H Respiratory Rate 15 18 19 H Blood Pressure 195/129 H 193/127 H Blood Pressure Mean 144 142 Pulse Ox 94 95 94 Oxygen Delivery Method 08/20/23 17:30 08/20/23 17:30 08/20/23 17:40 Temperature Temperature Source Pulse Rate 112 H 112 H 96 Respiratory Rate 16 16 19 H Blood Pressure 177/101 H Blood Pressure Mean 124 Pulse Ox 96 96 94 Oxygen Delivery Method 08/20/23 17:45 08/20/23 17:50 08/20/23 18:00 Temperature Temperature Source Pulse Rate 89 99 98 Respiratory Rate 12 19 H 16 Blood Pressure 169/105 H 161/96 H Blood Pressure Mean 124 112 Pulse Ox 95 94 94 Oxygen Delivery Method 08/20/23 18:10 08/20/23 18:15 08/20/23 18:20 Temperature Temperature Source Pulse Rate 94 96 90 Respiratory Rate 17 15 15 Blood Pressure 167/93 H Blood Pressure Mean 113 Pulse Ox 95 94 95 Oxygen Delivery Method 08/20/23 18:30 08/20/23 18:57 08/20/23 18:40 Temperature Temperature Source Pulse Rate 95 97 94 Respiratory Rate 14 18 24 H Blood Pressure 183/107 H 181/107 H Blood Pressure Mean 130 131 Pulse Ox 95 96 95 Oxygen Delivery Method Room Air 08/20/23 18:45 08/20/23 18:50 08/20/23 19:00 Temperature Temperature Source Pulse Rate 101 H 97 100 Respiratory Rate 20 H 33 H 22 H Blood Pressure 181/107 H 168/103 H Blood Pressure Mean 128 124 Pulse Ox 96 96 95 Oxygen Delivery Method Patient's blood pressure has been monitored. Patient's blood pressure is acceptable for discharge at this time. She was instructed to follow-up with Dr. Pritchett regarding her blood pressure and A-fib since he monitors both. She also was instructed to call Dr. Ramirez or ENTs for ear/auditory testing. She has seen Dr. Kadeem Ramirez in the past. Positive well nourished and well developed Constitutional Narrative: Vital signs noted. Heart rate is rapid. Blood pressure is elevated. She states she took her blood pressure medication this morning. General Appearance ED: well developed and NAD; Negative for cyanotic or diaphoretic HEENT Reports TM's clear, moist mucous membranes and dry mucous membranes HEENT Narrative: External auditory canal is normal. Tympanic Membrane ED: Yes TM's clear Mouth ED: Yes dry mucous membranes Mouth: dry mucous membranes Eyes PERRL and EOMs intact bilaterally Neck no lymphadenopathy, supple and no JVD Chest Wall inspection of chest normal and palpation of chest normal Resp normal respiratory effort and clear to auscultation bilaterally Cardio S1 normal heart sound, S2 normal heart sound and no murmurs Rate: tachycardic Rhythm: abnormal rhythm irregularly irregular GI normal to inspection, nondistended, normoactive bowel sounds Neuro oriented x3, CN's II-XII intact bilaterally and no sensory deficits noted Neuro Narrative: The Remi and Ofrd test was performed. Unfortunately, the only available 24 gives 125 Hz and high-fiber 512 Hz. There was no lateralization on the Ford test. Ching test revealed air conduction was better on both sides. Patient is still stating the hearing on the left side is muffled. Sensorium / Orientation: alert Motor Exam: strength 5/5 throughout Skin no rashes or lesions noted, no wounds and skin turgor normal General Skin Exam: elasticity normal MDM MDM MDM Narrative Medical decision making narrative: Patient may have central neuro loss since there is no abnormality of the external auditory canal or the appearance of the TM. Also patient is noted to be in A-fib with RVR. EKG was obtained and reveals a rate of 142. There is no acute ischemic changes. CBC was obtained assess H&H. Electrolyte panel was obtained. Patient was treated with metoprolol for rate control. She states she saw Dr. Jaffe 1 week ago. She has known chronic A-fib. She is having no symptoms other than the muffled hearing on the left side. Lab Data Attestation: I reviewed the patient's lab results. Lab results narrative: CBC is unremarkable. BMP is remarkable glucose of 187. Prior laboratory results indicated patient's had elevated blood sugars. She does not have history of diabetes on no diabetic medication. Labs: Laboratory Results - last 24 hr 08/20/23 17:02 WBC 8.1 RBC 4.18 L Hgb 13.4 Hct 41.7 MCV 99.8 H MCH 32.1 H MCHC 32.1 RDW Std Deviation 47.4 H RDW Coeff of Sridhar 12.9 Plt Count 214 MPV 9.2 Sodium 139 Potassium 3.5 Chloride 104 Carbon Dioxide 29.0 Anion Gap 6 BUN 12 Creatinine 0.94 Estim Creat Clear Calc 37.06 Est GFR (MDRD) Af Amer 73 Est GFR (MDRD) Non-Af 60 BUN/Creatinine Ratio 12.8 Glucose 187 H Calcium 10.0 EKG Initial EKG: Attestation: I personally reviewed and interpreted this EKG as follows: Interpretation: Atrial Fibrillation (Rate of 142. QRS duration 96 ms. QT duration [address]-T wave changes due to rate in all likelihood. There is no evidence of STEMI.) Treatment and Re-Evaluation :: Heart rate at 1721 is at 105. I looked at the monitor and heart rate now is 119. Will give an additional dose of metoprolol. Vital signs at 1900 are 168/103 with a heart rate of 100. Patient will be discharged to home. She is to contact Dr. Pritchett's office on Tuesday and Dr. Kadeem Ramirez's office on Tuesday. She was placed on short burst of prednisone in the event this is a sensorineural hearing deficit on the left. Discharge Plan Triage Chief Complaint: Dizziness ED Provider: Huang Bae Dx/Rx/DC Orders Clinical Impression: Chronic atrial fibrillation with rapid ventricular response, White coat syndrome with diagnosis of hypertension, Hyperlipidemia, Essential hypertension, Decreased hearing of left ear, Hyperglycemia without ketosis Instructions: Your Hearing Evaluation, Understanding Hearing Loss, ED AFIB Prescriptions: New prednisone 20 mg tablet 60 mg PO DAILY Qty: 12 0RF No Action Xarelto 20 mg tablet 20 mg PO DAILY Patient Comments: Take 1 tablet by mouth daily with dinner. for atrial fibrillation / anitcoagulation allopurinol 100 MG tablet 100 mg PO DAILYCM losartan 100 MG tablet 100 mg PO DAILY hydrochlorothiazide 12.5 MG tablet 12.5 mg PO DAILY carvedilol 12.5 mg tablet 12.5 mg PO BID acetaminophen 500 mg Tablet 1,000 mg PO Q8 Qty: 180 0RF atorvastatin 20 mg Tablet 20 mg PO DAILY multivitamin Capsule 1 cap PO DAILY Primary Care Provider: Fifi Sánchez Referrals: Maik Jaffe MD [Med Staff - Active Staff] - 5-7 Days Kadeem Ramirez MD [Med Staff - Active Staff] - 2 Days Fifi Sánchez MD [Primary Care Provider] - 1-2 Weeks Disposition Disposition: Home, Self Care
[2023-08-20] MEDS: Metoprolol Tartrate 5 MG/5 ML Vial IV ×2 (16:58→17:37)
[2023-08-20 17:10] LABS: Hematocrit 41.7 % (37-47); Hemoglobin 13.4 g/dL (12.0-15.0); Mean Corp Hgb Conc 32.1 g/dL (32-36); Mean Corpuscular Hgb 32.1 pg (27.0-32.0); Mean Corpuscular Volume 99.8 fL (81-99); Mean Platelet Vol. 9.2 fl (6.2-12.0); Platelet Count 214 K/mm3 (150-450); RBC Distribution Width CV 12.9 % (11.6-14.6); RBC Distribution Width SD 47.4 fl (35.1-43.9); Red Blood Count 4.18 M/mm3 (4.2-5.4); White Blood Count 8.1 K/mm3 (4.4-11.0)
[2023-08-20 17:23] LABS: Anion Gap 6 (5-15); BUN 12 mg/dL (7-18); BUN/Creat Ratio 12.8 RATIO (10-20); Chloride 104 mmol/L (98-107); Creatinine, Serum 0.94 mg/dL (0.55-1.02); EST Glomerular Filtration Rate 60 mL/min (>60); Est Glom Filt Rate - Afr Amer 73 mL/min (>60); Estimated Creatinine Clearance 37.06 ml/min; Glucose 187 mg/dL (74-106); Potassium 3.5 mmol/L (3.5-5.1); Sodium Level 139 mmol/L (136-145)
[2023-08-20] MEDS: predniSONE 20 MG Tablet 60 MG PO (18:35)
== END 2023-08-20 19:30 | disposition home or self-care (01) ==
PROVIDERS: Emergency Provider Emergency Medicine; PCP Internal Medicine; Visit Provider Emergency Medicine
DX: I48.20 Chronic atrial fibrillation, unspecified (principal); H91.92 Unspecified hearing loss, left ear; E78.5 Hyperlipidemia, unspecified; I10 Essential (primary) hypertension; R73.9 Hyperglycemia, unspecified; R42 Dizziness and giddiness; Z79.01 Long term (current) use of anticoagulants
CPT/HCPCS: 80048; 85027; 93005; 96374; 96376; 99284; A4216

== ENCOUNTER → 2023-09-22 | Outpatient (CLI) | payer MEDICARE, OTHER, SELFPAY | END | disposition home or self-care (01) | LOC: CVS 08:43 | PROVIDERS: PCP Internal Medicine; Referring Provider Internal Medicine Cardiovascular Disease; Visit Provider Internal Medicine Cardiovascular Disease | DX: I48.20 Chronic atrial fibrillation, unspecified (principal); I48.11 Longstanding persistent atrial fibrillation; I10 Essential (primary) hypertension; I65.21 Occlusion and stenosis of right carotid artery | CPT/HCPCS: 93788 ==

== ENCOUNTER 2024-07-22 15:33 | Emergency (ER) | payer MEDICARE, OTHER, SELFPAY ==
[2024-07-22 15:34] VITALS: BP 162/81; PULSE 98; RESP 16; TEMP 37.1; O2SAT 98; BMI 27.1
--- NOTE | 2024-07-22 16:09 | EX.ED.DYSGE1 ---
[facility] <ISRAEL Melendez - Last Filed: 07/22/24 16:44> History of Present Illness Chief Complaint: Back Narrative Narrative: Patient is a 84-year-old female with history of hypertension hyperlipidemia history of shingles who presents to the [facility] for pain to the upper buttock on the right side that radiates down the right leg. Patient states that shoots down her leg and significant discomfort. Patient denies any specific injury. Patient she woke up with this pain. Patient denies any bowel or bladder cons. Denies any fall or traumatic injury [facility] <ISRAEL Melendez - Last Filed: 07/22/24 16:44> [facility] Medical History Abnormal electrocardiogram Arthritis Arthritis of knee Cardiology follow-up encounter Essential hypertension Gout History of atrial fibrillation History of echocardiogram History of stress test Hyperlipidemia Hypertension Longstanding persistent atrial fibrillation Mitral insufficiency Non-smoker Post-menopausal Stenosis of right carotid artery Wears glasses Wears partial dentures Home Medications ?Medication ?Instructions ?Recorded ?Last Taken ?Type allopurinol 100 mg tablet 100 mg PO DAILYCM 07/16/20 03/30/22 History hydrochlorothiazide 12.5 mg tablet 12.5 mg PO DAILY 07/16/20 08/20/23 History losartan 100 mg tablet 100 mg PO DAILY 07/16/20 08/20/23 History atorvastatin 20 mg tablet 20 mg PO DAILY 09/22/21 08/20/23 History multivitamin 1 cap PO DAILY 09/22/21 08/20/23 History carvedilol 12.5 mg tablet 12.5 mg PO BID 11/10/21 08/20/23 History acetaminophen 500 mg tablet 1,000 mg (2 x 500 mg) PO Q8 #180 04/01/22 Unknown Rx tabs rivaroxaban 20 mg tablet (Xarelto) 20 mg PO DAILY 08/02/23 08/20/23 History prednisone 20 mg tablet 60 mg (3 x 20 mg) PO DAILY #12 08/20/23 Unknown Rx TABLETS amlodipine 2.5 mg tablet 2.5 mg PO QDAY Dose decreased due 05/24/24 Unknown Rx to leg swelling #90 tabs prednisone 50 mg tablet 50 mg PO DAILY 5 days #5 tabs 07/22/24 Unknown Rx Allergy/AdvReac Type Severity Reaction Status Date / Time lisinopril (From Zestril) AdvReac Other Verified 07/22/24 15:34 NSAIDS (Non-Steroidal AdvReac Nausea/Vom/ Verified 07/22/24 15:34 Anti-Inflamma Diarrhea oxycodone (From OxyContin) AdvReac Rash Verified 07/22/24 15:34 Family History Mother Colon cancer Brother Diabetes Brother Hypertension Brother Hypertension Sister CAD (coronary artery disease) Myocardial infarction Hypertension IBS (irritable bowel syndrome) Surgical History History of bilateral cataract extraction History of thumb surgery Status post total right knee replacement Social History (Updated 08/20/23 @ 16:[address] Huang Bae MD) household members: spouse Smoking Status: Former smoker ROS <ISRAEL Melendez - Last Filed: 07/22/24 16:44> ROS ED ROS Narrative Constitutional: Negative for fever, chills, weight loss, weakness Eyes: Negative for vision loss, vision change, double vision ENT: Negative for any sore throat, ear pain, congestion Cardiovascular: Negative for any chest pain, tightness, palpitations Respiratory: Negative for any cough, sputum production, hemoptysis, dyspnea, dyspnea on exertion, orthopnea Gastrointestinal: Negative for any abdominal pain, nausea, vomiting, diarrhea, constipation, blood in stool, blood in vomit : Negative for any urinary frequency, dysuria, retention, blood in urine Muscle skeletal: Negative for any neck pain. Positive right-sided lower back pain, upper buttock pain that rates down the right leg Neurological: Negative for any headache, syncope, dizziness Skin: Negative for any rashes, itching, abrasions, lacerations Psychiatric: Negative for any depression, anxiety, stress, suicidal ideation, homicidal ideation Hematologic: Negative for any excessive bruising, easy bleeding EXAM <ISRAEL Melendez - Last Filed: 07/22/24 16:44> Physical Exam Narrative Exam Narrative: Vital signs reviewed. Abdomen: Soft, nontender, nondistended. No abdominal bruit or pulsatile masses. No hepatosplenomegaly Extremities: No peripheral edema, no signs of gross trauma or deformity. Active full range of motion of all extremities. Patient has an intact extensor magnesium. Able to flex and extend at the knee. Dorsiflex against resistance. No numbness or tingling. No bowel or bladder incontinence. No saddle paresthesia. Neuro: Cranial nerves II through XII intact, no focal neurological deficits. Skin: Clean dry and intact with no rash, purpura, petechiae, vesicles or pustules. Backs/flank: No CVA tenderness, no midline spinal tenderness, no deformity. Psych: Normal mood and affect. No SI, HI or acute psychosis. Const Vital Signs: 07/22/24 15:34 07/22/24 17:06 Temperature 98.7 F Temperature Source Oral Pulse Rate 98 79 Respiratory Rate 16 16 Blood Pressure 162/81 H 152/87 H Blood Pressure Mean 108 108 Pulse Ox 98 99 Oxygen Delivery Method Room Air <Dr. Huang Bae MD - Last Filed: 07/22/24 18:07> Physical Exam Const Vital Signs: 07/22/24 15:34 07/22/24 17:06 Temperature 98.7 F Temperature Source Oral Pulse Rate 98 79 Respiratory Rate 16 16 Blood Pressure 162/81 H 152/87 H Blood Pressure Mean 108 108 Pulse Ox 98 99 Oxygen Delivery Method Room Air MDM <ISRAEL Melendez - Last Filed: 07/22/24 16:44> [facility] [place] Treatment and Re-Evaluation :: Differential diagnosis includes however is not limited to: Sciatica, lumbar fracture, muscle spasm spinal abscess least likely, cauda equina Patient appears generally well, vital signs are stable, patient is nontoxic-appearing. Presenting to the emergency department with complaints of pain to the right buttock down the right leg. Patient has no neurological focal deficit. Patient will receive IM morphine, or Zofran. Patient will be reevaluated. On reevaluation, the patient is feeling slight improvement. Patient will be started on prednisone burst. Patient likely suffered from SI joint discomfort. Patient does have Mobile at home for severe pain. She begin a short course of prednisone, instructed return for any worsening symptoms, all questions answered, patient stable for discharge. <Dr. Huang Bae MD - Last Filed: 07/22/24 18:07> [facility] Narrative Medical decision making narrative: I have personally performed a face to face assessment of the patient and have reviewed the JONATAN Note. I performed a substantive portion of the visit including all aspects of the following. My [place] findings include: History is [ Remarkable for pain right buttocks area. She denies any trauma. She has history of sciatica after the surgery. She denies bowel bladder dysfunction. Denies saddle paresthesia or anesthesia. She denies foot drop. She denies buckling of her knees going up or down steps.] Exam is there is no shortening of the right lower extremity compared to the left. Patient has scar due to total right knee arthroplasty performed by Dr. Delgadillo. Agustin Maylin 4 test causes pain in the right SI joint region. There is no pain in the inguinal area. There is no inguinal adenopathy. Patient has symmetric patella and ankle reflex. EHL is intact bilaterally. 5/5 strength with plantar and dorsiflexion of her foot. She has palpable distal pulses. Straight leg test was negative. Medical Decision Making patient has pain due to inflammation of the right SI joint. NSAIDs are contraindicated because she is 84 years of age and the fact that she is on Xarelto. Patient was treated with burst of prednisone. She was discharged to home in stable condition. Other additions or changes: [None] Discharge Plan Triage Chief Complaint: Back ED Midlevel Provider: Jluis Alvarez ED Provider: Huang Bae Dx/Rx/DC Orders Clinical Impression: SI (sacroiliac) joint dysfunction Instructions: Low Back Leg Pain Causes, Hip Flexor Stretch (Flexibility), Prone Hip Extension Prescriptions: New prednisone 50 mg tablet 50 mg PO DAILY 5 Days Qty: 5 0RF No Action Xarelto 20 mg tablet 20 mg PO DAILY Patient Comments: Take 1 tablet by mouth daily with dinner. for atrial fibrillation / anitcoagulation allopurinol 100 MG tablet 100 mg PO DAILYCM losartan 100 MG tablet 100 mg PO DAILY hydrochlorothiazide 12.5 MG tablet 12.5 mg PO DAILY carvedilol 12.5 mg tablet 12.5 mg PO BID acetaminophen 500 mg Tablet 1,000 mg PO Q8 Qty: 180 0RF atorvastatin 20 mg Tablet 20 mg PO DAILY multivitamin Capsule 1 cap PO DAILY prednisone 20 mg tablet 60 mg PO DAILY Qty: 12 0RF amlodipine 2.5 mg tablet 2.5 mg PO QDAY Qty: 90 3RF Primary Care Provider: Fifi Sánchez Referrals: Fifi Sánchez MD [Primary Care Provider] - Activity Restrictions/Additional Instructions: You may take Metamucil for any constipation. Use your Mobile for the severe pain. Take your prednisone in the morning. Continue your daily medications. Print Language: Swedish Disposition Disposition: Home, Self Care Discharge Date/Time: 07/22/24 17:07
[2024-07-22] MEDS: Morphine 4 MG/ML Syringe IM (16:23)
[2024-07-22] MEDS: Ondansetron ODT 4 MG Tablet PO (16:23)
[2024-07-22] MEDS: predniSONE 20 MG Tablet 40 MG PO (17:05)
[2024-07-22 17:06] VITALS: BP 152/87; PULSE 79; RESP 16; O2SAT 99
--- NOTE | 2024-07-23 15:31 | ED.RN ---
Pt called and was concerned that treatment yesterday was making her shingles hurt worse. I spoke with Dr Bae whom seen the patient yesterday and he said it is possible but not probable. Pt just wanted to make sure that she didn't get the wrong treatment.
== END 2024-07-22 17:07 | disposition home or self-care (01) ==
PROVIDERS: Emergency Provider Emergency Medicine; PCP Internal Medicine; Visit Provider Emergency Medicine
DX: M46.1 Sacroiliitis, not elsewhere classified (principal); I48.11 Longstanding persistent atrial fibrillation; I10 Essential (primary) hypertension; E78.5 Hyperlipidemia, unspecified; Z79.01 Long term (current) use of anticoagulants; Z79.899 Other long term (current) drug therapy; Z87.891 Personal history of nicotine dependence; Z96.651 Presence of right artificial knee joint
CPT/HCPCS: 96372; 99283

== ENCOUNTER 2024-08-21 20:30 | Emergency (ER) | payer MEDICARE, OTHER, SELFPAY ==
[2024-08-21 20:31] VITALS: BP 162/84; PULSE 99; RESP 15; TEMP 35.9; O2SAT 96
--- NOTE | 2024-08-21 22:15 | EX.ED.DYSGE1 ---
HPI History of Present Illness Chief Complaint: Rash Informant: patient Narrative Narrative: Patient states she was sitting in a kitchen chair at home when she started noticing itching on her buttocks and proximal thighs. She checked in the area where she was itching and noticed a hive, and started developing them on both buttocks and hip areas. They itch, but she does not have them anywhere else. She denies any swelling, lightheadedness, dyspnea, chest discomfort, or any other systemic symptoms right now. She started gabapentin several weeks ago, but no other medication changes. She denies any new clothing in the affected area or washing her close and new detergents or using any topicals in this area that she can think of except for Voltaren which she has been topically applying to her left hip, where she does have some hives, but she has them in areas on her buttocks where she is not applying Voltaren cream. Patient states she thinks they are hives but also wants to make sure that she does not have measles. There has been a recent outbreak in [facility] and she has not traveled to this area of the country recently. [facility] Medical History Mitral insufficiency Wears glasses Wears partial dentures Post-menopausal Arthritis Non-smoker History of stress test History of echocardiogram Hypertension Cardiology follow-up encounter History of atrial fibrillation Stenosis of right carotid artery Longstanding persistent atrial fibrillation Abnormal electrocardiogram Gout Essential hypertension Hyperlipidemia Arthritis of knee Home Medications ?Medication ?Instructions ?Recorded ?Last Taken ?Type allopurinol 100 mg tablet 100 mg PO DAILYCM 07/16/20 03/30/22 History hydrochlorothiazide 12.5 mg tablet 12.5 mg PO DAILY 07/16/20 08/20/23 History losartan 100 mg tablet 100 mg PO DAILY 07/16/20 08/20/23 History atorvastatin 20 mg tablet 20 mg PO DAILY 09/22/21 08/20/23 History multivitamin 1 cap PO DAILY 09/22/21 08/20/23 History carvedilol 12.5 mg tablet 12.5 mg PO BID 11/10/21 08/20/23 History acetaminophen 500 mg tablet 1,000 mg (2 x 500 mg) PO Q8 #180 04/01/22 Unknown Rx tabs rivaroxaban 20 mg tablet (Xarelto) 20 mg PO DAILY 08/02/23 08/20/23 History amlodipine 2.5 mg tablet 2.5 mg PO QDAY Dose decreased due 08/14/24 Unknown Rx to leg swelling #90 tabs escitalopram oxalate 10 mg tablet 10 mg PO QDAY 08/14/24 Unknown History (Lexapro) gabapentin 400 mg capsule 400 mg PO TID 08/14/24 Unknown History prednisone 20 mg tablet 40 mg (2 x 20 mg) PO DAILY 4 days 08/21/24 Unknown Rx #8 tabs Allergy/AdvReac Type Severity Reaction Status Date / Time lisinopril (From Zestril) AdvReac Other Verified 08/21/24 20:31 NSAIDS (Non-Steroidal AdvReac Nausea/Vom/ Verified 08/21/24 20:31 Anti-Inflamma Diarrhea oxycodone (From OxyContin) AdvReac Rash Verified 08/21/24 20:31 Family History Mother Colon cancer Brother Diabetes Brother Hypertension Brother Hypertension Sister CAD (coronary artery disease) Myocardial infarction Hypertension IBS (irritable bowel syndrome) Surgical History Status post total right knee replacement History of thumb surgery History of bilateral cataract extraction Social History household members: spouse Smoking Status: Former smoker ROS ROS ED Constitutional Constitutional ED: Denies chills or fever(s) ENT ENT ED: Denies sore throat Cardiovascular Cardiovascular: Denies chest pain, leg edema, lightheadedness or syncope Respiratory/Chest Respiratory/Chest: Denies dyspnea Musculoskeletal Musculoskeletal: Denies arthralgias Integumentary Reports as per HPI, pruritus and rash EXAM Physical Exam Const Vital Signs: 08/21/24 20:31 08/21/24 22:19 Temperature 96.6 F L 96.6 F L Temperature Source Temporal Pulse Rate 99 99 Respiratory Rate 15 16 Blood Pressure 162/84 H 130/68 H Blood Pressure Mean 110 88 Pulse Ox 96 94 Oxygen Delivery Method Room Air Positive well nourished and well developed General Appearance ED: well developed and NAD HEENT Reports moist mucous membranes HEENT Narrative: Posterior pharynx clear. No angioedema. No oral mucosal rash or lesions. Eyes PERRL and EOMs intact bilaterally Neck no lymphadenopathy and supple Resp normal respiratory effort and clear to auscultation bilaterally Cardio regular rate and regular rhythm GI normal to inspection, nondistended, normoactive bowel sounds and non-tender Extremity normal to inspection General Extremety ED: Negative for edema General Extremity: Negative for edema Neuro oriented x3, CN's II-XII intact bilaterally, no sensory deficits noted and gait normal Motor Exam: strength 5/5 throughout Skin Skin Narrative: Scattered nontender large urticaria present lateral proximal thighs/hips and buttocks. No bullae. No petechia. No purpura. There are no lesions elsewhere and no other rash. MDM MDM MDM Narrative Medical decision making narrative: These are consistent with urticaria fairly focal distribution in the distribution of her underwear. I focused on a history of possible contact exposures in this area but she has had no new items of clothing or detergents lately that she can think of that would explain except for the topical Voltaren gel. However, she is using it on just her left hip but she has urticaria throughout both buttocks. At this time I think reasonable to simply suppress this with prednisone and Benadryl and see if that helps and she can follow-up, I do not see anything dangerous and certainly this is not measles, she is very anxious about all of this and I reassured her that at this time there is nothing dangerous. Discharge Plan Triage Chief Complaint: Rash ED Provider: Dallin Bell Dx/Rx/DC Orders Clinical Impression: Urticaria Instructions: ED Hives (Adult) Prescriptions: New prednisone 20 mg tablet 40 mg PO DAILY 4 Days Qty: 8 0RF No Action Xarelto 20 mg tablet 20 mg PO DAILY Patient Comments: Take 1 tablet by mouth daily with dinner. for atrial fibrillation / anitcoagulation gabapentin 400 mg capsule 400 mg PO TID escitalopram oxalate [Lexapro] 10 mg tablet 10 mg PO QDAY amlodipine 2.5 mg tablet 2.5 mg PO QDAY Qty: 90 0RF allopurinol 100 MG tablet 100 mg PO DAILYCM losartan 100 MG tablet 100 mg PO DAILY hydrochlorothiazide 12.5 MG tablet 12.5 mg PO DAILY carvedilol 12.5 mg tablet 12.5 mg PO BID acetaminophen 500 mg Tablet 1,000 mg PO Q8 Qty: 180 0RF atorvastatin 20 mg Tablet 20 mg PO DAILY multivitamin Capsule 1 cap PO DAILY Primary Care Provider: Fifi Sánchez Referrals: Fifi Sánchez MD [Primary Care Provider] - 1 Week if not improving Print Language: Portuguese Disposition Disposition: Home, Self Care Discharge Date/Time: 08/21/24 22:42
[2024-08-21 22:19] VITALS: BP 130/68; PULSE 99; RESP 16; TEMP 35.9; O2SAT 94
[2024-08-21] MEDS: predniSONE 20 MG Tablet 40 MG PO (22:29)
[2024-08-21] MEDS: DiphenhydrAMINE 25 MG Capsule 50 MG PO (22:29)
[2024-08-21 22:30] VITALS: BMI 26.9
== END 2024-08-21 22:42 | disposition home or self-care (01) ==
PROVIDERS: Emergency Provider Emergency Medicine; PCP Internal Medicine; Visit Provider Emergency Medicine
DX: L50.9 Urticaria, unspecified (principal); I48.11 Longstanding persistent atrial fibrillation; M10.9 Gout, unspecified; I10 Essential (primary) hypertension; E78.5 Hyperlipidemia, unspecified; Z79.01 Long term (current) use of anticoagulants; Z79.899 Other long term (current) drug therapy; Z87.891 Personal history of nicotine dependence
CPT/HCPCS: 99282